=== PATIENT | male | born 1965 | race Caucasian/White ===

== ENCOUNTER 2016-05-10 03:20 | Emergency (ER) | payer OTHER ==
[~2016-05-10] VITALS: Ht 182.9 cm; Wt 81.6 kg
[2016-05-10] MEDS ORDERED: NKM (03:30)
[2016-05-10] MEDS ORDERED: Naproxen 500mg tab ORAL ONE (03:45)
[2016-05-10] MEDS ORDERED: DuoNeb 0.5-3(2.5)mg/3ml neb HHN ONE (03:45)
--- NOTE | 2016-05-10 03:47 | Emergency Room Report ---
History of Present Illness General Chief Complaint: Flu Like Symptoms Source: Patient Present Illness HPI Patient is a 51-year-old male who presented after increased fever and nonproductive cough. The patient was noted have onset of symptoms approximately 2 days ago. Patient had recent sick contact with flulike symptoms. Patient for having increased difficulty breathing associated with headache. He had not been vomiting. The patient fever greater than 101. He reports having prior history of pneumonia. Allergies: Coded Allergies: No Known Allergies (Unverified , 05/10/16) Patient History Past Medical History: see triage record Reviewed Nursing Documentation: PMH: Agreed, PSxH: Agreed Nursing Documentation-PMH Hx Cardiac Problems: Yes - HIGH CHOLESTEROL Review of Systems All Other Systems: negative except mentioned in HPI Physical Exam Vital Signs Date Time Temp Pulse Resp B/P Pulse Ox O2 Delivery O2 Flow Rate FiO2 05/10/16 03:21 101.5 106 20 146/88 96 Room Air Sp02 EP Interpretation: reviewed, normal General Appearance: normal inspection, alert, mild distress Head: atraumatic ENT: normal ENT inspection, hearing grossly normal, normal voice Neck: normal inspection, full range of motion, supple, no bony tend Respiratory: normal inspection, lungs clear, normal breath sounds, no respiratory distress, no retraction, no wheezing Cardiovascular #1: regular rate, rhythm, no edema Gastrointestinal: normal inspection, normal bowel sounds, non tender, soft, no guarding, no hernia Genitourinary: no CVA tenderness Musculoskeletal: normal inspection, back normal, normal range of motion Neurologic: normal inspection, alert, oriented x3, responsive, tappet adjuster III-XII nml as tested, speech normal Psychiatric: normal inspection, judgement/insight normal, mood/affect normal Skin: normal inspection, normal color, no rash Medical Decision Making Diagnostic Impression: Primary Impression: Viral infection ER Course Patient presented for fever and cough. Differential diagnosis included but was not limited to bronchitis, pneumonia, pulmonary embolism, pericarditis, asthma, foreign body.Because of complexity of patient's case laboratory testing and imaging studies were ordered.Patient was given breathing treatments. He was given Naprosyn for fever.The patient was noted to have a normal white blood count. Influenza testing was negative. The patient was noted to have normal after electrolyte panel. The patient was noted to have what appears to be a viral illness. The patient is advised to follow up with primary care doctor in 1-2 days. Patient is advised to return if any worsening condition or if any changes in status that are concerning. Labs Test 05/10/16 03:50 White Blood Count 6.4 K/UL (4.8-10.8) Red Blood Count 5.31 M/UL (4.70-6.10) Hemoglobin 15.6 G/DL (14.2-18.0) Hematocrit 47.0 % (42.0-52.0) Mean Corpuscular Volume 89 FL (80-99) Mean Corpuscular Hemoglobin 29.3 PG (27.0-31.0) Mean Corpuscular Hemoglobin Concent 33.1 G/DL (32.0-36.0) Red Cell Distribution Width 11.5 % (11.6-14.8) Platelet Count 147 K/UL (150-450) Mean Platelet Volume 10.0 FL (6.5-10.1) Neutrophils (%) (Auto) 76.2 % (45.0-75.0) Lymphocytes (%) (Auto) 15.3 % (20.0-45.0) Monocytes (%) (Auto) 7.6 % (1.0-10.0) Eosinophils (%) (Auto) 0.4 % (0.0-3.0) Basophils (%) (Auto) 0.6 % (0.0-2.0) Sodium Level 138 mEQ/L (135-145) Potassium Level 3.6 mEQ/L (3.4-4.9) Chloride Level 95 mEQ/L (98-107) Carbon Dioxide Level 28 mEQ/L (20-30) Anion Gap 15 (5-15) Blood Urea Nitrogen 13 mg/dL (7-23) Creatinine 1.1 mg/dL (0.7-1.2) Estimat Glomerular Filtration Rate > 60 mL/min (>60) Glucose Level 118 mg/dL (74-106) Lactic Acid Level 1.30 mmol/L (0.66-2.22) Calcium Level 9.0 mg/dL (8.6-10.2) Total Bilirubin 1.0 mg/dL (0.0-1.2) Aspartate Amino Transf (AST/SGOT) 20 U/L (5-40) Alanine Aminotransferase (ALT/SGPT) 25 U/L (3-41) Alkaline Phosphatase 56 U/L (40-129) Total Creatine Kinase 106 U/L (38-174) Creatine Kinase MB < 1.5 ng/mL (< 6.7) Creatine Kinase MB Relative Index 1.4 Troponin I < 0.30 ng/mL (<=0.30) Total Protein 7.0 g/dL (6.6-8.7) Albumin 4.2 g/dL (3.5-5.2) Globulin 2.8 g/dL Albumin/Globulin Ratio 1.5 (1.0-2.7) EKG Diagnostic Results Rate: normal Rhythm: NSR ST Segments: no acute changes Rhythm Strip Diag. Results EP Interpretation: yes Rhythm: NSR, no PVC's, no ectopy Chest X-Ray Diagnostic Results EP Interpretation: Yes Findings: no consolidation, no effusion, no pneumothorax, no acute cardiopulmonary disease Number of Views: 1 Last Vital Signs Date Time Temp Pulse Resp B/P Pulse Ox O2 Delivery O2 Flow Rate FiO2 05/10/16 03:21 101.5 106 20 146/88 96 Room Air Status: improved Disposition: HOME, SELF-CARE Condition: Stable Scripts Naproxen* (NAPROXEN*) 500 Mg Tablet 500 MG ORAL TWICE A DAY for 7 Days, TAB Prov: Parish Amaya 05/10/16 Azithromycin* (ZITHROMAX*) 250 Mg Tablet 250 MG ORAL DAILY, #6 TAB 0 Refills Take two tables once daily for 1 day, then one tablet once daily for 4 days. Prov: Parish Amaya 05/10/16 Parish Amaya May 10, 2016 03:47
[2016-05-10 04:21] VITALS: BP 144/79
[2016-05-10 04:33] LABS: BASOPHILS % (AUTO) 0.6 % (0.0-2.0); EOSINOPHILS % (AUTO) 0.4 % (0.0-3.0); LYMPHOCYTES % (AUTO) 15.3 % (20.0-45.0); MEAN CORPUSCULAR HEMOGLOBIN 29.3 PG (27.0-31.0); MEAN CORPUSCULAR HGB CONC 33.1 G/DL (32.0-36.0); MEAN CORPUSCULAR VOLUME 89 FL (80-99); MONOCYTES % (AUTO) 7.6 % (1.0-10.0); NEUTROPHILS % (AUTO) 76.2 % (45.0-75.0); PLATELET COUNT 147 K/UL (150-450); RED BLOOD COUNT 5.31 M/UL (4.70-6.10); RED CELL DISTRIBUTION WIDTH 11.5 % (11.6-14.8); WHITE BLOOD COUNT 6.4 K/UL (4.8-10.8)
[2016-05-10 04:44] LABS: TROPONIN I < 0.30 ng/mL (<=0.30)
[2016-05-10 04:47] LABS: ALANINE AMINOTRANSFERASE 25 U/L (3-41); ALBUMIN/GLOBULIN RATIO 1.5 (1.0-2.7); ANION GAP 15 (5-15); ASPARTATE AMINO TRANSFERASE 20 U/L (5-40); CARBON DIOXIDE 28 mEQ/L (20-30); CHLORIDE 95 mEQ/L (98-107); CREATININE 1.1 mg/dL (0.7-1.2); GLOMERULAR FILTRATION RATE > 60 mL/min (>60); HEMOLYSIS 7; POTASSIUM 3.6 mEQ/L (3.4-4.9); SODIUM 138 mEQ/L (135-145)
[2016-05-10 04:57] LABS: CKMB < 1.5 ng/mL (< 6.7)
[2016-05-10 05:03] VITALS: BP 134/69
[2016-05-10] MEDS ORDERED: ZITHROMAX250 MG ORAL (05:06)
[2016-05-10] MEDS ORDERED: NAPROXEN500 M2 ORAL (05:06)
[2016-05-10 05:13] VITALS: BP 134/69
--- NOTE | 2016-05-10 08:34 | Diagnostic Imaging Report ---
Indication: Shortness of breath Technique: Single portable AP view of the chest. Findings: Comparison: 08/27/2010 Linear densities have developed in both lung bases. The bones and extra pulmonary soft tissues, cardiomediastinal silhouette, pulmonary vasculature, and pleural surfaces are unremarkable. IMPRESSION: Development of pulmonary bibasal subsegmental atelectasis is Otherwise negative portable AP chest, unchanged.
--- NOTE | 2016-05-11 18:51 | Cardiology Report ---
APPROVED REPORT EKG Measurement Heart [id number] Normal sinus rhythm Normal ECG
== END 2016-05-10 05:21 | disposition home or self-care (01) ==
LOC: EMR 03:35
DX: B34.9 Viral infection, unspecified (principal); E78.00 Pure hypercholesterolemia, unspecified
CPT/HCPCS: 36415; 71010; 80053; 82550; 82553; 83605; 84484; 85025; 86710; 87040; 93005; 94640; 94664; 96360; J7620